=== PATIENT | female | born 1945 | race Caucasian/White ===

== ENCOUNTER 2016-10-27 08:33 | Emergency (ER) | payer MEDICARE ==
[~2016-10-27] VITALS: Ht 157.5 cm; Wt 77.1 kg
[2016-10-27 08:33] VITALS: BP_SYST 165
[2016-10-27 09:27] VITALS: BP_SYST 165
== END 2016-10-27 09:27 | disposition home or self-care (01) ==
LOC: SED 08:33
DX: B02.9 Zoster without complications (principal); E11.9 Type 2 diabetes mellitus without complications
CPT/HCPCS: 99282

== ENCOUNTER 2017-03-27 14:31 | Emergency (ER) | payer MEDICARE ==
[~2017-03-27] VITALS: Ht 152.4 cm; Wt 73.5 kg
[2017-03-27 14:52] VITALS: BP_SYST 109
--- NOTE | 2017-03-27 15:28 | NUR ---
Patient to ER bed 5 to gown for evaluation. Side rails up. Report given to Elton DAHL.
--- NOTE | 2017-03-27 15:30 | NUR ---
Pt presents to ED c/o cough and congestion x 1 week. Pt is poor historian, however, O2 sat 93% in triage. Pt denies CP or resp distress.
--- NOTE | 2017-03-27 15:33 | NUR ---
ER at bedside examining patient.
[2017-03-27 16:40] VITALS: BP_SYST 110
--- NOTE | 2017-03-27 16:40 | NUR ---
Patient given written and verbal discharge instructions and verbalizes understanding. ER MD discussed with patient the results and treatment provided. Patient in stable condition. ID arm band removed. Rx of prednisone,albuterol given. Patient educated on pain management and to follow up with PMD. Pain Scale 0. Opportunity for questions provided and answered.
== END 2017-03-27 16:40 | disposition home or self-care (01) ==
LOC: SED 14:31
DX: R05 Cough (principal); E11.9 Type 2 diabetes mellitus without complications; I10 Essential (primary) hypertension
CPT/HCPCS: 71046-TC; 99284

== ENCOUNTER 2018-09-02 18:15 | Emergency (ER) | payer MEDICARE, BC ==
[~2018-09-02] VITALS: Ht 152.4 cm; Wt 72.6 kg
[2018-09-02 18:23] VITALS: BP_SYST 143
[2018-09-02] MEDS ORDERED: ACETAMINOPHEN 500 MG TABLET PO ONE (20:00)
[2018-09-02 22:38] VITALS: BP_SYST 145
== END 2018-09-02 22:40 | disposition home or self-care (01) ==
LOC: SED 18:15
DX: S09.90XA Unspecified injury of head, initial encounter (principal); H11.32 Conjunctival hemorrhage, left eye; E11.9 Type 2 diabetes mellitus without complications; I10 Essential (primary) hypertension; W18.09XA Striking against other object with subsequent fall, initial encounter; Y93.89 Activity, other specified; Y92.89 Other specified places as the place of occurrence of the external cause; Y99.8 Other external cause status
CPT/HCPCS: 70450-TC; 70480; 72125-TC; 72170-TC; 73030; 99284

== ENCOUNTER 2021-09-23 09:33 | Outpatient (CLI) | payer MEDICARE, BC | END 2021-09-23 19:47 | disposition home or self-care (01) | LOC: SRD 09:33 | DX: M19.012 Primary osteoarthritis, left shoulder (principal); M46.02 Spinal enthesopathy, cervical region; M89.38 Hypertrophy of bone, other site; M54.2 Cervicalgia | CPT/HCPCS: 72040-TC; 73030 ==

== ENCOUNTER 2023-04-09 15:26 | Emergency (ER) | payer MEDICARE, BC ==
[~2023-04-09] VITALS: Ht 157.5 cm; Wt 72.6 kg
[2023-04-09 15:26] VITALS: BP_SYST 126; PULSE 68; RESP 20; TEMP 98.5; O2SAT 99
[2023-04-09 16:30] VITALS: BP_SYST 126; PULSE 68; RESP 20; TEMP 98.5; O2SAT 99
[2023-04-09 16:52] LABS: BASOPHILS # (AUTO) 0.1 K/uL (0.0-0.2); BASOPHILS % (AUTO) 0.7 % (0.0-2.0); EOSINOPHILS # (AUTO) 0.1 K/uL (0.0-0.4); EOSINOPHILS % (AUTO) 1.1 % (0.0-4.0); HEMOGLOBIN 14.1 g/dL (12.0-16.0); LYMPHOCYTES # (AUTO) 1.4 K/uL (1.0-5.5); LYMPHOCYTES % (AUTO) 13.3 % (20.5-51.5); MEAN CORPUSCULAR HEMOGLOBIN 29 pg (27-31); MEAN CORPUSCULAR HGB CONC 34 % (32-36); MEAN CORPUSCULAR VOLUME 86 fL (79.0-98.0); MONOCYTES # (AUTO) 0.7 K/uL (0.0-1.0); MONOCYTES % (AUTO) 7.2 % (1.7-9.3); NEUTROPHILS % (AUTO) 77.7 % (40.0-70.0); PLATELET COUNT (AUTO) 163 K/uL (130-430); RED BLOOD CELL COUNT(AUTO) 4.89 MIL/uL (4.2-6.2); RED CELL DISTRIBUTION WIDTH 15.7 % (9.0-15.0); WHITE BLOOD COUNT (AUTO) 10.2 K/uL (4.8-10.8)
[2023-04-09 17:10] LABS: ALANINE AMINOTRANSFERASE 22 U/L (12-78); ALBUMIN 3.8 g/dL (3.4-4.8); ANION GAP 9 (5-15); ASPARTATE AMINOTRANSFERASE 19 U/L (10-37); CALCIUM 8.1 mg/dL (8.4-11.0); CARBON DIOXIDE 30 mmol/L (23-29); CHLORIDE 102 mmol/L (98-107); CREATININE 1.04 mg/dL (0.55-1.30); GLUCOSE 103 mg/dL (74-106); POTASSIUM 3.8 mmol/L (3.5-5.1); SODIUM SERUM 141 mmol/L (136-145); TOTAL BILIRUBIN 0.3 mg/dL (0.0-1.0); TOTAL PROTEIN, SERUM 8.5 g/dL (6.4-8.3); UREA NITROGEN, BLOOD 10 mg/dL (8-21)
[2023-04-09 17:21] LABS: BILIRUBIN,DIRECT 0.1 mg/dL (0.0-0.3); CREATINE KINASE, TOTAL 44 U/L (26-192)
[2023-04-09 17:43] LABS: PROTHROMBIN TIME 10.2 SECS (9.5-12.5)
[2023-04-09 18:34] LABS: COVID19 ANTIGEN SOFIA FIA NEGATIVE (NEGATIVE)
[2023-04-09 18:35] LABS: INFLUENZA TYPE A Negative (NEGATIVE); INFLUENZA TYPE B NEGATIVE (NEGATIVE)
[2023-04-09] MEDS ORDERED: DIPH25CA83 PO (18:40)
[2023-04-09] MEDS ORDERED: ALBMDI INH (18:40)
== END 2023-04-09 18:48 | disposition home or self-care (01) ==
LOC: SED 15:26
DX: J45.909 Unspecified asthma, uncomplicated (principal); R05.9 Cough, unspecified; R06.02 Shortness of breath; E11.9 Type 2 diabetes mellitus without complications; I10 Essential (primary) hypertension; Z79.899 Other long term (current) drug therapy; Z20.822 Contact with and (suspected) exposure to COVID-19
CPT/HCPCS: 36415; 71045; 80048; 80076; 82550; 83605; 83880; 84484; 85025; 85610; 85730; 93005; 99285

== ENCOUNTER 2023-11-27 09:36 | Outpatient (CLI) | payer MEDICARE, BC ==
[~2023-11-27 09:36] MED LIST: ALBMDI INH; DIPH25CA83 PO
== END 2023-11-27 20:28 | disposition home or self-care (01) ==
LOC: SRD 09:36
PROVIDERS: ATTEND Internal Medicine
DX: R06.02 Shortness of breath (principal); J90 Pleural effusion, not elsewhere classified
CPT/HCPCS: 71046